=== PATIENT | male | born 1995 | race Hispanic/Latino ===

== ENCOUNTER 2020-07-18 13:49 | Emergency (ER) | payer OTHER ==
[~2020-07-18] VITALS: Ht 167.6 cm; Wt 80.5 kg
--- NOTE | 2020-07-18 15:51 | REP ---
INDICATION: trauma, posterior lower ribs. COMPARISON: None. TECHNIQUE: Five views including PA chest. FINDINGS: PA chest radiograph is normal. There is no evidence of pneumothorax or hydrothorax. Mediastinum is not widened. Heart size is normal. The lung man are clear. Multiple views of the left ribcage show no evidence of rib fracture or bony destructive lesion. IMPRESSION: Unremarkable left rib radiographic series. No rib fracture seen. Lung man are clear. <Electronically signed by Eric Colón > 07/18/20 [id number]
--- NOTE | 2020-07-18 15:52 | REP ---
INDICATION: trauma, posterior lower ribs. COMPARISON: None. TECHNIQUE: Five views of the lumbar spine are obtained. FINDINGS: Five views of the lumbar spine show preserved vertebral body heights and intact alignment. Disc spaces are maintained. There is no evidence of spondylolysis or spondylolisthesis. No fracture or collapse is seen. No transverse process fracture is seen. No sacral fracture is noted. Visualized bowel gas pattern is normal. IMPRESSION: Unremarkable lumbar spine series. No fracture seen. <Electronically signed by Eric Colón > 07/18/20 [id number]
[2020-07-18 16:00] LABS: APPEARANCE, URINE CLEAR (CLEAR); BACTERIA, URINE AUTO NEGATIVE (NEGATIVE); BILIRUBIN, URINE AUTO NEGATIVE (NEGATIVE); BLOOD, URINE BLOOD NEGATIVE (NEGATIVE); COLOR, URINE YELLOW (YELLOW); GLUCOSE, URINE (UA) AUTO NEGATIVE (NEGATIVE); KETONE, URINE AUTO 1+ mg/dL (NEGATIVE); LEUKOCYTE ESTERASE, URINE AUTO NEGATIVE (NEGATIVE); MUCUS, URINE SMALL (NEGATIVE); NITRITE, URINE AUTO NEGATIVE (NEGATIVE); PROTEIN, URINE AUTO NEGATIVE (NEGATIVE); RBC, URINE AUTO 1 /HPF (0-3); SPECIFIC GRAVITY URINE AUTO 1.026 (1.002-1.035); SQUAMOUS EPITHELIAL CELL UR AU 0 /HPF (0-6); UROBILINOGEN, URINE AUTO 0.2 mg/dL (0.0-2.0); WBC, URINE AUTO 0 /HPF (0-3)
[2020-07-18] MEDS ORDERED: IBUP-1022 PO (16:22)
[2020-07-18 16:56] VITALS: BP 133/68
== END 2020-07-18 17:45 | disposition home or self-care (01) ==
LOC: M ED 13:49
DX: M54.5 Low back pain (principal); W10.9XXA Fall (on) (from) unspecified stairs and steps, initial encounter; Y92.9 Unspecified place or not applicable; Y93.9 Activity, unspecified; Y99.9 Unspecified external cause status